=== PATIENT | male | born 1985 | race Caucasian/White ===

== ENCOUNTER 2021-05-10 13:56 | Emergency (ER) | payer SELFPAY ==
[2021-05-10 14:37] VITALS: BP 138/87; PULSE 99
[2021-05-10] MEDS: Sodium Chloride 0.9% 1,000 ML IV ONE (15:07)
[2021-05-10 15:26] LABS: CHLORIDE,CL 105 mmol/L (98-107); ESTIMATED GFR > 60; SODIUM,NA 139 mmol/L (136-145)
[2021-05-12 11:47] LABS: C.TRACHOMATIS BY TMA Negative (Negative); N.GONORRHOEAE BY TMA Negative (Negative)
== END 2021-05-10 17:06 | disposition home or self-care (01) ==
LOC: DL.ED 13:56
DX: N42.0 Calculus of prostate (principal); N40.0 Benign prostatic hyperplasia without lower urinary tract symptoms; N32.81 Overactive bladder
CPT/HCPCS: 36415; 51798; 80053; 81001; 83605; 85025; 87040; 87491; 87591; 99283; 99284; J7030

== ENCOUNTER 2024-01-06 03:41 | Emergency (ER) | payer MEDICAID, OTHER ==
[2024-01-06] MEDS: Lidocaine 1% 30 ML SDV INJECT ONE (03:59)
[2024-01-06 04:00] VITALS: BP 144/97; PULSE 108
[2024-01-06] MEDS: Bacitracin Oint 1 GM U/D Packet ONE (04:34)
[2024-01-06] MEDS: Bacitracin Oint 1 GM U/D Packet TOP ONE (04:36)
[2024-01-06] MEDS: Diphtheria,Pertussis(Acell),Tetanus Vaccine 0.5 ML Syringe IM ONE (04:53)
== END 2024-01-06 05:02 | disposition home or self-care (01) ==
LOC: DL.ED 03:41
DX: S91.201A Unspecified open wound of right great toe with damage to nail, initial encounter (principal); W22.8XXA Striking against or struck by other objects, initial encounter; Z23 Encounter for immunization; Y93.K1 Activity, walking an animal
CPT/HCPCS: 11730; 90471; 90715; 99282; 99283; A9270; J3490

== ENCOUNTER 2024-06-04 22:44 | Emergency (ER) | payer MEDICAID ==
[2024-06-04 22:58] VITALS: BP 146/94; PULSE 99
[2024-06-04] MEDS: Pseudoephedrine 30 MG Tab PO ONE (23:12)
[2024-06-04] MEDS: Zolpidem 5 MG Tab PO ONE (23:12)
== END 2024-06-04 23:17 | disposition home or self-care (01) ==
LOC: DL.ED 22:44
DX: H69.93 Unspecified Eustachian tube disorder, bilateral (principal); H93.11 Tinnitus, right ear
CPT/HCPCS: 99283; 99284; A9270